=== PATIENT | female | born 1985 ===

== ENCOUNTER 2021-10-19 07:38 | Emergency (ER) | payer OTHER ==
[~2021-10-19] VITALS: Ht 170.2 cm; Wt 102.1 kg
[2021-10-19] MEDS ORDERED: SYNTHROID100 MCG PO (08:01)
== END 2021-10-19 11:32 | disposition home or self-care (01) ==
LOC: ER 07:38
DX: R10.9 Unspecified abdominal pain (principal); R51.9 Headache, unspecified; R19.7 Diarrhea, unspecified; Z20.822 Contact with and (suspected) exposure to COVID-19